=== PATIENT | female | born 1970 | race Caucasian/White ===

== ENCOUNTER 2018-03-24 05:34 | Day surgery (SDC) | payer BC ==
[2018-03-24] MEDS ORDERED: LACTATED RINGER'S 1,000 ML IV* (06:00)
[2018-03-24] MEDS ORDERED: NALOXONE (0.4 MG/ML) INJ IV (06:30)
[2018-03-24] MEDS ORDERED: NEOSTIGMINE 3 MG/3 ML SYRINGE (06:32)
[2018-03-24] MEDS ORDERED: GLYCOPYRROLATE 0.4 MG INJ (06:32)
[2018-03-24] MEDS ORDERED: ROCURONIUM 50 MG INJ (06:32)
[2018-03-24] MEDS ORDERED: LIDOCAINE 2% (SDV) 5 ML INJ (06:32)
[2018-03-24] MEDS ORDERED: PROPOFOL 20 ML (06:32)
[2018-03-24] MEDS ORDERED: ONDANSETRON 4 MG INJ (06:33)
[2018-03-24] MEDS ORDERED: FENTAnyl 50 MCG/ML VIAL (06:33)
[2018-03-24] MEDS ORDERED: MIDAZOLAM 1 MG/ML 2 ML INJ (06:33)
[2018-03-24] MEDS ORDERED: DEXAMETHASONE 4 MG/ML 1 ML INJ (06:33)
[2018-03-24] MEDS: HYDROmorphONE 1 MG/5 ML IV SYRINGE IV (09:00)
[2018-03-24] MEDS ORDERED: FENTAnyl 50 MCG/ML VIAL IV ×2 (09:00)
[2018-03-24] MEDS ORDERED: ONDANSETRON 4 MG INJ IV (09:00)
[2018-03-24] MEDS ORDERED: HYDROmorphONE 1 MG/5 ML IV SYRINGE IV (09:00)
== END 2018-03-24 10:45 | disposition home or self-care (01) ==
LOC: SDS 05:34
DX: L81.4 Other melanin hyperpigmentation (principal); A63.0 Anogenital (venereal) warts; E66.9 Obesity, unspecified; Z68.39 Body mass index [BMI] 39.0-39.9, adult
CPT/HCPCS: 11422